=== PATIENT | male | born 1975 | race Caucasian/White ===

== ENCOUNTER 2017-06-05 10:16 | Emergency (ER) | payer OTHER ==
[~2017-06-05] VITALS: Ht 177.8 cm; Wt 95.3 kg
[2017-06-05 10:36] VITALS: BP 164/114
[2017-06-05] MEDS ORDERED: CYCLOBENZAPRINE 10 MG TABLET. PO ONE (10:45)
[2017-06-05] MEDS ORDERED: HYDROcodone/APAP 10/325 1 TAB TABLET PO ONE (10:45)
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
[2017-06-05] MEDS ORDERED: CYCL5TAB PO (11:37)
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
[2017-06-05] MEDS ORDERED: HYDR-971 PO (11:40)
== END 2017-06-05 11:49 | disposition home or self-care (01) ==
LOC: ER 10:16
DX: S30.0XXA Contusion of lower back and pelvis, initial encounter (principal); M19.90 Unspecified osteoarthritis, unspecified site; I10 Essential (primary) hypertension; K21.9 Gastro-esophageal reflux disease without esophagitis; V43.62XA Car passenger injured in collision with other type car in traffic accident, initial encounter; Y93.89 Activity, other specified; Y92.410 Unspecified street and highway as the place of occurrence of the external cause; Y99.8 Other external cause status
CPT/HCPCS: 72131; 99284-25

== ENCOUNTER → 2018-08-26 | Outpatient (CLI) | payer OTHER ==
[~2018-08-26] MED LIST: CYCL5TAB PO; HYDR-3164 PO
--- NOTE | 2018-08-26 17:02 | KCIC ---
MRI Cervical Spine Without Contrast History: Headache, pain Technique: Multiplanar, multi sequential noncontrast MR imaging was performed of the cervical spine. Comparison: None Findings: There is motion degradation even for repeated images. Cervical cord caliber is within normal limits without defined or expansile signal abnormality. There is no significant marrow edema. There is mild reversal of the lordotic curvature centered about C5. Cervical vertebral body stature is maintained. There is negligible anterior spondylolisthesis C3-4 and negligible posterior subluxation C5 relative to C6. There is moderate degenerative disc disease C5-6, mild disc desiccation C4-5 and C3-4. C2-C3: Neural foramina and spinal canal are adequate. C3-C4: Spinal canal and the neural foramina are adequate. C4-C5: There is facet degenerative change. Spinal canal is adequate. Neural foramina probably adequate as suggested on sagittal images. C5-C6: There is minimal disc osteophyte complex. Central canal is adequate about 12 mm. There is uncovertebral degenerative change greater on the right. There is likely moderate to severe right and mild to moderate left neural foramina compromise. C6-C7: Spinal canal and neural foramina are adequate. C7-T1: Neural foramina and spinal canal are adequate. Impression: 1. Exam is degraded by motion even for repeated images. There is degenerative disc disease greatest C5-6, mild spondylosis at this level. There is no significant cervical spinal stenosis. There is likely right greater than left C5-6 neural foramina compromise mostly from uncovertebral degenerative change. Electronically signed by: Tree Sims MD (08/26/2018 4:58 PM) [id number]
--- NOTE | 2018-08-26 17:16 | KCIC ---
MRI Thoracic Spine without contrast History: Degenerative disc disease, thoracic spine pain Technique: Multiplanar, multi sequential noncontrast MR imaging was performed of the thoracic spine. Comparison: None Findings: There is some motion degradation. Thoracic cord caliber is within normal limits, no expansile signal change. There is mild prominence of the central canal of the cord most notable T4-T5 to T9-T10, greatest axial dimension about 1 mm such as at T7-8. There is no significant focal posterior disc abnormality of the thoracic spine. There is no significant thoracic spinal stenosis or thoracic neural foramina compromise. Intervertebral disc spaces are relatively preserved, very mild disc desiccation such as T7-8, T8-9, T10-11. There is no significant marrow edema. Impression: 1. There is no significant thoracic spinal stenosis or neural foramina compromise. 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 Electronically signed by: Tree Sims MD (08/26/2018 5:13 PM) [id number]
== END | disposition home or self-care (01) ==
LOC: KCIC MRI 15:21
DX: M50.31 Other cervical disc degeneration, high cervical region (principal); M47.892 Other spondylosis, cervical region; M25.78 Osteophyte, vertebrae; G95.19 Other vascular myelopathies
CPT/HCPCS: 72141; 72146

== ENCOUNTER → 2018-11-26 | Outpatient (CLI) | payer OTHER ==
--- NOTE | 2018-11-26 15:43 | KCIC ---
EXAM: MRI LEFT KNEE DATE: 11/26/2018 2:00 PM CLINICAL INDICATION: Left knee pain, weakness, instability. COMPARISON: radiographs 11/24/2018 is now TECHNIQUE: Multiplanar, multisequence MRI of the left knee was performed without contrast. FINDINGS: No significant knee joint effusion. Trace Escalante's cyst. ACL and PCL are intact. The MCL, fibular collateral ligament, biceps femoris and IT band are intact. The popliteus tendon is normal in signal and morphology, intact. Extensor mechanism is intact. Borderline lateral patellar tracking. Medial meniscus: Intact Lateral meniscus: Intact No definite full-thickness cartilage defect is identified. No significant chondral thinning. No evidence for fracture or osteonecrosis. IMPRESSION: 1. Mild suprapatellar fat pad edema may be seen with anterior knee pain/impingement. 2. Small Escalante's cyst. 3. Otherwise, no evidence for internal derangement of the left knee. Electronically signed by: Harish Epps MD (11/26/2018 3:40 PM) [id number]
== END | disposition home or self-care (01) ==
LOC: KCIC MRI 13:31
PROVIDERS: ATTEND Orthopaedic Surgery
DX: M71.22 Synovial cyst of popliteal space [Baker], left knee (principal); R60.0 Localized edema
CPT/HCPCS: 73721